=== PATIENT | male | born 2000 | race Caucasian/White ===

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

== ENCOUNTER 2022-04-06 17:09 | Emergency (ER) | payer BC, OTHER ==
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
[2022-04-06 22:21] VITALS: BP 132/82; O2SAT 100
== END 2022-04-06 19:53 | disposition home or self-care (01) ==
LOC: ER 17:09
DX: S09.90XA Unspecified injury of head, initial encounter (principal)
CPT/HCPCS: 70450; 72125

== ENCOUNTER 2024-05-14 19:38 | Emergency (ER) | payer BC, OTHER, SELFPAY ==
--- OUTSIDE RECORDS SUMMARY | 2024-05-14 19:41 | XMS REPORT | Continuity of Care Document ---
Author Name Unknown Address [address] [facility] [address] [place] [address] [facility] thconnect Address [address] [facility] [address] [place] [address] Care Team Providers Care Waste Specialist Name Role Phone Unavailable Unavailable Unavailable Encounters Start Date/Time End Date/Time Encounter Type Admission Type Attending Clinicians Care Facility Care Department Encounter ID Source 2023-03-31 14:14:57 2023-03-31 14:14:57 Outpatient [facility] [id number] Yury Quiles 2022-11-16 15:45:28 2022-11-16 15:45:28 Outpatient [facility] [id number] Yury Quiles 2022-09-28 08:17:55 2022-09-28 08:17:55 Outpatient [facility] [id number] Yury Quiles 2022-05-17 16:21:54 2022-05-17 16:21:54 Outpatient [facility] [id number] Yury Quiles Results Test Description Test Time Test Comments Results Result Co mments Source VITAMIN [id number] 06:49:09* Test Item Value Reference Range Interpretation Comme [facility] VITAMIN B-12 (test code = 2840) 480 PG/ML 200-950 [id number] 05:14:00* Test Item Value Reference Range Interpretation Comme [facility] TESTOSTERONE (test code = 2830) 540 NG/DL 300-1080 HEPATITIS PANEL, [id number] 04:08:50* Test Item Value Reference Range Interpretation Comme nts HEPATITIS A IgM (test code = 25564) NON-REACTIVE NON-REACTIVE HEPATITIS B CORE IgM (test code = 4644) NON-REACTIVE NON-REACTIVE HEPATITIS B SURF AG (test code = 2739) NON-REACTIVE NON-REACTIVE HEPATITIS C ANTIBODY (test code = 4675) NON-REACTIVE NON-REACTIVE INTERPRETATION HEPATITIS A: (test code = 2552) (NOTE) Hepatitis A sero logy shows no evidence of acute hepatitis A. INTERPRETATION HEPATITIS B: (test code = 80839) (NOTE) Hepatitis B sero logy shows no evidence of acute hepatitis B andno indication of exposure to hepatitis B virus in the previous nicolas eight months. INTERPRETATION HEPATITIS C: (test code = 08048) (NOTE) Hepatitis C sero logy shows no evidence of exposure to hepatitisC virus at this time. It can take up to 12 months after exposure tothe hepatitis C virus for antibodies to become detectable in the blood in certain patients. UNLESS OTHERWISE INDICATED, ALL TESTING PERFORMED AT [facility] [address] [place] [address] LEVEL VIAL SEALER: NAVEED PATRICK M.D. CLIA NUMBER [id number] [facility] [place]. [id number] HIV 1/2 4TH GEN, RFLX [id number] 04:08:50* Test Item Value Reference Range Interpretation Comme nts HIV 1/2 4TH GEN, RFLX CONF ( test code = 3514) NON-REACTIVE NON-REACTIVE [id number] 04:01:51* Test Item Value Reference Range Interpretation Comme nts RPR RESULT (test code = 3501) NON-REACTIVE NON-REACTIVE RPR TITER (test code = 3500) NOT INDIC. TITER NOT INDIC. COMPREHENSIVE METABOLIC [id number] 05:03:05* Test Item Value Reference Range Interpretation Comme nts GLUCOSE (test code = 2217) 97 MG/DL 70-99 BUN (test code = 8) 19 MG/DL 6-20 CREATININE (test code = 2214) 1.23 MG/DL 0.80-1.40 eGFR (2020 CKD-EPI) (test code = 98116) 86 ML/MIN/1.73 >60 CALC BUN/CREAT (test code = 2235) 15 RATIO 6-28 SODIUM (test code = 2231) 141 MEQ/L 133-146 POTASSIUM (test code = 8) 3.8 MEQ/L 3.5-5.4 CHLORIDE (test code = 2215) 106 MEQ/L 95-107 CARBON DIOXIDE (test code = 6) 23 MEQ/L 19-31 CALCIUM (test code = 2209) 9.6 MG/DL 8.5-10.5 PROTEIN, TOTAL (test code = 2228) 7.5 G/DL 6.1-8.3 ALBUMIN (test code = 1) 4.9 G/DL 3.5-5.2 CALC GLOBULIN (test code = 2240) 2.6 G/DL 1.9-3.7 CALC A/G RATIO (test code = 2233) 1.9 RATIO 1.0-2.6 BILIRUBIN, TOTAL (test code = 2206) 0.3 MG/DL See_Comment [Automated me ssage] The system which generated this result transmitted reference range: <=1.2. The reference range was not used to interpret this result as normal/abnormal. ALKALINE PHOSPHATASE (test code = 2203) 102 U/L 49-148 AST (test code = 8) 9 U/L 9-50 ALT (test code = 2218) 25 U/L 5-50 LIPID [id number] 05:03:05* Test Item Value Reference Range Interpretation Comme nts CHOLESTEROL (test code = 2210) 172 MG/DL <200 TRIGLYCERIDES (test code = 2) 144 MG/DL <150 HDL CHOLESTEROL (test code = 0) 46 MG/DL >39 CALC LDL CHOL (test code = 2236) 102 MG/DL <100 H NOTE: CALCULATED LDL IS BASED ON HEDY-THOMPSON METHOD WHICHINCLUDES ADJUSTABLE TRIGLYCERIDE:VLDL CHOLESTEROL RATIO.THIS FACTOR VARIES BY MEASURED TRIGLYCERIDE AND NON-HDLCHOLESTEROL CONCENTRATIONS WITH INCREASED CALCULATED LDL SEENIN HIGHER TRIGLYCERIDE OR LOWER NON-HDL SPECIMENS. FOR MOREINFORMATION, SEE CLIENT ANNOUNCEMENT AT [email or web address] [email or web address] RATIO LDL/HDL (test code = 2238) 2.22 RATIO <3.55 VITAMIN D, 25 [id number] 04:55:30* Test Item Value Reference Range Interpretation Comme nts VITAMIN D, 25 OH (test code = 4958) 33 NG/ML SEE BELOW EFFECTIVE 11/2022, PLEASE NOTE NEW METHODOLOGY IS ELECTROCHEMILUMINESCENCE BINDING ASSAY. NOTE: 25-HYDROXYVITAMIN D ASSAY INCLUDES 25-HYDROXYVITAMIN D2 AND D3. INTERPRETIVE RANGES PEDIATRIC (<17 YEARS) . . . . . . . . . . . NG/ML 20-100ADULT: INSUFFICIENT . . . . . . . . . . . . . . NG/ML <20 SUBOPTIMAL . . . . . . . . . . . . . . . NG/ML 20-29 OPTIMAL . . . . . . . . . . . . . . . . . NG/ML 30-100 TSH, THIRD [id number] 04:54:38* Test Item Value Reference Range Interpretation Comme nts TSH, THIRD GENERATION (test code = 2821) 1.290 UIU/ML 0.400-4.100 [facility] has impo rtant pathology staff changes effective 05/11/2022. New pathology staff will provide uninterrupted, excellent patient care and clinical consultation. See URL: [email or web address]. UNLESS OTHERWISE INDICATED, ALL TESTING PERFORMED AT [facility] [address] [place] [address] LEVEL VIAL SEALER: NAVEED PATRICK M.D. IA NUMBER [id number] [facility] [place]. [id number] HEMOGLOBIN [id number] 04:45:04* Test Item Value Reference Range Interpretation Comme nts HEMOGLOBIN A1c (test code = 35407) 5.1 % 4.2-5.6 CBC W/AUTO DIFF WITH [id number] 03:21:49* Test Item Value Reference Range Interpretation Comme nts WBC (test code = 1001) 9.7 K/UL 3.5-11.0 RBC (test code = 1002) 5.10 M/UL 4.50-6.10 HEMOGLOBIN (test code = 1003) 14.9 G/DL 13.5-17.0 HEMATOCRIT (test code = 1004) 43.2 % 40.0-51.0 MCV (test code = 1005) 84.7 fL 80.0-99.0 MCH (test code = 1006) 29.2 PG 25.0-33.0 MCHC (test code = 1007) 34.5 G/DL 31.0-36.0 RDW (test code = 1038) 12.9 % 11.5-15.0 NEUTROPHILS (test code = 1008) 72.4 % LYMPHOCYTES (test code = 1010) 17.9 % MONOCYTES (test code = 1011) 7.8 % EOSINOPHILS (test code = 1012) 1.1 % BASOPHILS (test code = 1013) 0.5 % IMMATURE GRANULOCYTES (test code = 1036) 0.3 % NUCLEATED RBCS (test code = 1065) 0.0 /100 WBC'S See_Comment [Automated [employer]] The system which generated this result transmitted reference range: 0.0. The reference range was not used to interpret this result as normal/abnormal. PLATELET COUNT (test code = 1015) 273 K/UL 130-400 ABSOLUTE NEUTROPHILS (test code = 1066) 7.04 K/UL 1.50-7.50 ABSOLUTE LYMPHOCYTES (test code = 1067) 1.74 K/UL 1.00-4.00 ABSOLUTE MONOCYTES (test code = 1068) 0.76 K/UL 0.20-1.00 ABSOLUTE EOSINOPHILS (test code = 1040) 0.11 K/UL 0.00-0.50 ABSOLUTE BASOPHILS (test code = 1069) 0.05 K/UL 0.00-0.20 ABS IMMATURE GRANULOCYTES (test code = 1020) 0.03 K/UL 0.00-0.10 ABS NUCLEATED RBCS (test code = 98201) 0.00 K/UL 0.00-0.11
--- NOTE | 2024-05-14 20:03 | RAD REPORT ---
EXAMINATION: Stone Protocol CLINICAL INDICATION: Abdominal pain. Right flank pain TECHNIQUE: CT abdomen and pelvis was performed, without IV contrast, as per department protocol. Oral contrast not given. Axial, sagittal and coronal reconstructions were obtained. One or more of the following dose reduction techniques were used: Automated exposure control, adjustment of the mA and k V according to the patient size, and iterative reconstruction. Unless otherwise specified, incidental findings do not require dedicated imaging follow-up. COMPARISON: No prior exam. FINDINGS: The lack of intravenous and oral contrast limits the sensitivity of this exam for evaluation of solid visceral organs, vascular structures, and bowel A renal calculus not seen. No ureteral calculus. A bladder calculus not noted. No hydronephrosis Liver, pancreas and adrenals grossly normal. Spleen 13 cm No evidence of diverticulitis. Normal appendix. Mild compression T11 vertebral body appears chronic. Tiny umbilical hernia. Possible disc herniation L4-5. Evaluation is somewhat limited. IMPRESSION: Negative for a genitourinary calculus Possible disc herniation L4-5. If clinically indicated nonemergent MRI lumbar spine obtained Borderline splenomegaly
[2024-05-14] MEDS ORDERED: MORPHINE 4 MG/ML SYR ONE (20:38)
[2024-05-14] MEDS ORDERED: ONDANSETRON 4 MG/2 ML VIAL ONE (20:38)
[2024-05-14 21:15] LABS: Albumin 3.8 g/dL (3.4-5.0); Albumin/Globulin Ratio 0.8 (1.1-1.8); Anion Gap 8.1 mEq/L (5.0-15.0); Bilirubin Total 0.5 mg/dL (0.2-1.0); Globulin 4.5 g/dL (2.3-3.5); Protein, Total 8.3 g/dL (6.4-8.2)
[2024-05-14 21:17] LABS: Potassium 4.1 mEq/L (3.5-5.1)
[2024-05-14 23:10] LABS: Absolute Basophils 0.1 K/uL (0-0.5); Absolute Eosinophils 0.2 K/uL (0-0.5); Absolute Lymphocytes (CBC) 3.6 K/uL (0.7-4.9); Absolute Monocytes 0.9 K/uL (0.1-1.3); Absolute Neutrophil 6.2 K/uL (1.8-8.0); Basophils % 0.8 % (0-1.3); Eosinophils % 1.8 % (0-4.4); Hematocrit 44.7 % (39.6-49.0); Hemoglobin 15.5 g/dL (13.6-17.9); Lymphocytes % 32.6 % (15.3-44.8); MCH 29.3 pg (27.0-35.0); MCHC 34.7 g/dL (32.0-36.0); MCV 84.4 fL (80-100); MPV 8.1 fL (7.6-11.3); Monocytes % 8.2 % (3.3-12.3); Neutrophils % 56.6 % (41.7-73.7); Nucleated Red Blood Cells % 0.1 % (0-0); Platelets 291 thou/uL (152-406); Red Cell Distribution Width 13.5 % (12.1-15.2)
[2024-05-14 23:19] LABS: Specific Gravity 1.023 (1.005-1.030); Urine Bilirubin NEGATIVE (Negative); Urine Blood Negative (Negative); Urine Clarity Clear (Clear); Urine Color Yellow (Yellow); Urine Glucose NEGATIVE (Negative); Urine Ketones NEGATIVE (Negative); Urine Microscopic Reflex YN NO UMIC; Urine Nitrite NEGATIVE (Negative); Urine Protein NEGATIVE (Negative); Urine Urobilinogen Normal (Normal)
--- NOTE | 2024-05-14 23:27 | EDPHYS ---
Physician Documentation [facility] Name: Octavoi Cortez Age: 23 yrs Sex: Male : 2000 Arrival Date: 05/14/2024 Time: 19:38 Bed IW1 Private MD: ED Physician Jama Velasco HPI: 05/15 00:02 This 23 yrs old Male presents to ER via Wheelchair with complaints of HEMATURIA, SEVERE kb RT SIDE PAIN, Low Back Pain. 00:02 Pt is a 23 year old male who presents for pain to lower back that started at 1045 this morning. States the pain is worse on the right. Pain aggravated by movement, improved with rest. Denies urinary symptoms, fever, n/v/d. . Historical: - Allergies: 05/14 20:04 No Known Allergies; ap3 - PMHx: 20:04 Asthma; ap3 - Immunization history:: Client reports having NOT received the Covid vaccine. Flu vaccine is not up to date. - Infectious Disease History:: Denies. - Social history:: Smoking status: Patient reports use of chewing tobacco. Reported history of juuling and/or vaping. ROS: 05/15 00:01 Constitutional: As per HPI kb Exam: 00:01 Constitutional: This is a well developed, well nourished patient who is awake, alert, kb and in no acute distress. Head/Face: Normocephalic, atraumatic. ENT: Moist Mucous membranes Cardiovascular: Regular rate Respiratory: Respirations even and unlabored. No increased work of breathing. Talking in full sentences Abdomen/GI: Soft, non-tender. No distention Skin: Warm, dry with normal turgor. Normal color. MS/ Extremity: Pulses equal, no cyanosis. Neurovascular intact. Full, normal range of motion. Neuro: Awake and alert, GCS 15, oriented to person, place, time, and situation. 00:01 Back: pain, that is moderate, of the low back area and mid back area, ROM is painful, normal spinal alignment noted, Vital Signs: 05/14 20:02 BP 162 / 94; Pulse 82; Resp 18; Temp 97.8; Pulse Ox 100% ; Weight 117.93 kg; Height 6 ap3 ft. 1 in. ; Pain 6/10; 23:28 BP 153 / 87; Pulse 80; Resp 18; Temp 97.8; Pulse Ox 100% ; Pain 5/10; bm8 20:02 Body Mass Index 34.30 (117.93 kg, 185.42 cm) ap3 20:02 Pain Scale: Adult ap3 23:28 Pain Scale: Adult bm8 [place] Coma Score: 23:28 Eye Response: spontaneous(4). Motor Response: obeys commands(6). Verbal Response: bm8 oriented(5). Total: 15. MDM: 19:45 Medical Screening Exam initiated 23:20 Data reviewed: vital signs, nurses notes. 05/15 00:02 Differential diagnosis: kidney stone, herniated disc, strain. Historians other than the kb Patient: Spouse/Significant Other: significant other. Counseling: I had a detailed discussion with the patient and/or guardian regarding the historical points, exam findings, and any diagnostic results supporting the discharge/admit diagnosis, lab results, radiology results, the need for outpatient follow up, a family practitioner, to return to the emergency department if symptoms worsen or persist or if there are any questions or concerns that arise at home. 05/14 19:44 Order name: CBC with Diff; Complete Time: 23:13 rn 05/14 19:44 Order name: CMP; Complete Time: 21:18 rn 05/14 19:44 Order name: Urinalysis w/ reflexes; Complete Time: 23:19 rn 05/14 19:44 Order name: CT Stone Protocol; Complete Time: 20:04 rn 05/14 19:44 Order name: IV Saline Lock; Complete Time: 21:00 rn 05/14 19:44 Order name: Labs collected and sent; Complete Time: 21:00 rn 05/14 21:28 Order name: Labs - recollect needed: recollect purple top ; Complete Time: 23:28 kmf Administered Medications: 05/14 20:59 Drug: Ondansetron IVP 4 mg IVP once; over 2 minutes Route: IVP; Site: left antecubital; bm8 22:45 Follow up: Response: No adverse reaction bm8 21:00 Drug: morphine IVP or IV 4 mg IVP once over 4 mins Route: IVP; Infused Over: 4 mins; bm8 Site: left antecubital; 22:46 Follow up: Response: No adverse reaction bm8 23:31 Drug: Ketorolac IVP 15 mg IVP once Route: IVP; Site: left antecubital; bm8 23:45 Follow up: Response: No adverse reaction bm8 23:31 Drug: Diazepam PO 5 mg PO once Route: PO; bm8 23:44 Follow up: Response: No adverse reaction bm8 23:32 Drug: Decadron - Dexamethasone IVP 10 mg IVP once Route: IVP; Site: left antecubital; bm8 23:45 Follow up: Response: No adverse reaction bm8 Disposition Summary: 05/14/24 23:27 Discharge Ordered Notes: Location: Home kb Condition: Stable kb Diagnosis - Low back pain kb Followup: kb - With: Emergency Department - When: As needed - Reason: Worsening of condition Followup: kb - With: Private Physician - When: 2 - 3 days - Reason: Recheck today's complaints, Continuance of care, Re-evaluation by your physician Discharge Instructions: - Discharge Summary Sheet kb - Acute Back Pain, Adult kb - Herniated Disk, [id number] kb Forms: - Work release form kb - Medication Reconciliation Form kb - Antibiotic Education kb - Prescription Opioid Use kb - Patient Portal Instructions kb - Leadership Thank You Letter kb Prescriptions: - Prednisone 20 mg Oral Tablet - take 1 tablet ORAL route once daily for 5 days; 5 tablet; Refills: 0, Product kb Selection Permitted - Diclofenac Sodium 75 mg Oral tablet, delayed release (enteric coated) - take 1 tablet ORAL route 2 times per day As needed; 30 tablet; Refills: 0, kb Product Selection Permitted - orphenadrine citrate 100 mg Oral Tablet Sustained Release - take 1 tablet ORAL route 2 times per day As needed; 20 tablet; Refills: 0, kb Product Selection Permitted Signatures: Dispatcher [employer] EDAleena Mistry, SCARFER OPERATOR-C SCARFER OPERATOR-Ckb Jama Velasco MD MD rn Prokisch, Amanda, RN RN [email or web address] Frances Ruiz [facility] Oswaldo Orr RN RN bm8 Corrections: (The following items were deleted from the chart) 19:45 19:45 CBC+H.LAB.BRZ ordered. EDMS EDMS 19:45 19:45 COMPREHENSIVE METABOLIC PANEL+C.LAB.BRZ ordered. EDMS EDMS 19:45 19:45 Urinalysis+U.LAB.BRZ ordered. EDMS EDMS 19:45 19:45 Stone Protocol+CT.RAD.BRZ ordered. EDMS EDMS
--- NOTE | 2024-05-14 23:27 | ER ---
Nurse's Notes [facility] Name: Octavio Cortez Age: 23 yrs Sex: Male : 2000 Arrival Date: 05/14/2024 Time: 19:38 Bed IW1 Private MD: Diagnosis: Low back pain Presentation: 05/14 20:02 Chief complaint: Patient states: he is having right sided back pain and side pain that ap3 started this morning at 1045. patient also reports that he has been having blood in his urine intermittently for over a year. Coronavirus screen: At this time, the client does not indicate any symptoms associated with coronavirus-19. Ebola Screen: No symptoms or risks identified at this time. Initial Sepsis Screen: Does the patient meet any 2 criteria? No. Patient's initial sepsis screen is negative. Does the patient have a suspected source of infection? No. Patient's initial sepsis screen is negative. Risk Assessment: Do you want to hurt yourself or someone else? Patient reports no desire to harm self or others. Onset of symptoms is unknown. 20:02 Method Of Arrival: Wheelchair ap3 20:02 Acuity: SHANNAN 3 ap3 Triage Assessment: 20:05 General: Appears uncomfortable, Behavior is calm, cooperative, appropriate for age. ap3 Pain: Complains of pain in back, right side Pain currently is 6 out of 10 on a pain scale. at worst was 10 out of 10 on a pain scale. Neuro: Level of Consciousness is awake, alert, obeys commands, Oriented to person, place, time, situation, Appropriate for age Speech is normal. Cardiovascular: Patient's skin is warm and dry. Respiratory: Airway is patent Respiratory effort is even, unlabored, Respiratory pattern is regular, symmetrical. : Reports blood in urine since july of 2022. Historical: - Allergies: 20:04 No Known Allergies; ap3 - PMHx: 20:04 Asthma; ap3 - Immunization history:: Client reports having NOT received the Covid vaccine. Flu vaccine is not up to date. - Infectious Disease History:: Denies. - Social history:: Smoking status: Patient reports use of chewing tobacco. Reported history of juuling and/or vaping. Screenin:06 Abuse screen: Denies threats or abuse. Nutritional screening: No deficits noted. ap3 Tuberculosis screening: No symptoms or risk factors identified. 23:28 [facility] ED Fall Risk Assessment (Adult) History of falling in the last 3 months, bm8 including since admission No falls in past 3 months (0 pts) Confusion or Disorientation No (0 pts) Intoxicated or Sedated No (0 pts) Impaired Gait Yes (1 pt) Mobility Assist Device Used No (0 pt) Altered Elimination No (0 pt) Score/Fall Risk Level 0 - 2 = Low Risk Oriented to surroundings, Maintained a safe environment, Educated pt \T\ family on fall prevention, incl call for assistance when getting out of bed, Assessed \T\ reinforced patient's understanding of fall precautions, Hourly rounding (assess needs \T\ fall precautionary measures) done, Used ambulatory aids as needed (educated on \T\ assisted with), Used gait belt as appropriate. Assessment: 23:31 Reassessment: Patient appears in no apparent distress at this time. Patient and/or bm8 family updated on plan of care and expected duration. Pain level reassessed. Patient is alert, oriented x 3, equal unlabored respirations, skin warm/dry/pink. Patient states feeling better. Patient states symptoms have improved. Musculoskeletal: Capillary refill < 3 seconds, in bilateral fingers. Reports pain in back. Vital Signs: 20:02 BP 162 / 94; Pulse 82; Resp 18; Temp 97.8; Pulse Ox 100% ; Weight 117.93 kg; Height 6 ap3 ft. 1 in. ; Pain 6/10; 23:28 BP 153 / 87; Pulse 80; Resp 18; Temp 97.8; Pulse Ox 100% ; Pain 5/10; bm8 20:02 Body Mass Index 34.30 (117.93 kg, 185.42 cm) ap3 20:02 Pain Scale: Adult ap3 23:28 Pain Scale: Adult bm8 [place] Coma Score: 23:28 Eye Response: spontaneous(4). Motor Response: obeys commands(6). Verbal Response: bm8 oriented(5). Total: 15. ED Course: 19:42 Patient arrived in ED. jj6 19:45 Aleena Murcia [facility]NP-C [facility] kb 19:45 Jama Velasco MD is Attending Physician. kb 19:54 CT Stone Protocol In Process Unspecified. EDMS 20:04 Triage completed. ap3 20:06 Arm band placed on left wrist. ap3 20:48 Missed attempt(s): 20 gauge in left antecubital area. Bleeding controlled, band aid rv1 applied, catheter tip intact. 20:48 Inserted saline lock: 20 gauge in left antecubital area, using aseptic technique. Blood rv1 collected. Flushed with 10 mL NS. 23:28 Patient has correct armband on for positive identification. Provided Education on: post bm8 er care. 23:28 No provider procedures requiring assistance completed. IV discontinued, intact, bm8 bleeding controlled, No redness/swelling at site. Pressure dressing applied. 23:44 Oswaldo Orr, RN is Primary Nurse. bm8 Administered Medications: 20:59 Drug: Ondansetron IVP 4 mg IVP once; over 2 minutes Route: IVP; Site: left antecubital; bm8 22:45 Follow up: Response: No adverse reaction bm8 21:00 Drug: morphine IVP or IV 4 mg IVP once over 4 mins Route: IVP; Infused Over: 4 mins; bm8 Site: left antecubital; 22:46 Follow up: Response: No adverse reaction bm8 23:31 Drug: Ketorolac IVP 15 mg IVP once Route: IVP; Site: left antecubital; bm8 23:45 Follow up: Response: No adverse reaction bm8 23:31 Drug: Diazepam PO 5 mg PO once Route: PO; bm8 23:44 Follow up: Response: No adverse reaction bm8 23:32 Drug: Decadron - Dexamethasone IVP 10 mg IVP once Route: IVP; Site: left antecubital; bm8 23:45 Follow up: Response: No adverse reaction bm8 Medication: 23:28 VIS not applicable for this client. bm8 Outcome: 23:27 Discharge ordered by MD. marina 23:28 Discharged to home ambulatory, bm8 23:28 Condition: stable 23:28 Discharge instructions given to patient, family, Instructed on discharge instructions, follow up and referral plans. no drinking with medication, no driving heavy equipment, medication usage, safety practices, Demonstrated understanding of instructions, follow-up care, medications, Prescriptions given X 3, 23:45 Patient left the ED. bm8 Signatures: Dispatcher [employer] EDWY Aleena Murcia, JUDAH-C JUDAH-Divya Juarez RN RN ap3 Tessa Burrellj6 Mariam Mccallum rv1 Oswaldo Orr, RN RN bm8 Corrections: (The following items were deleted from the chart) 20:49 20:48 Missed attempt(s): 20 gauge in right antecubital area. Bleeding controlled, band rv1 aid applied, catheter tip intact. rv1 23:30 23:28 Discharge instructions given to patient, family, Instructed on discharge bm8 instructions, follow up and referral plans. no drinking with medication, no driving heavy equipment, medication usage, safety practices, Demonstrated understanding of instructions, follow-up care, medications, Prescriptions given X 2, bm8
[2024-05-14] MEDS ORDERED: KETOROLAC 30 MG/ML INJ ONE (23:34)
[2024-05-14] MEDS ORDERED: dexAMETHasone 10 MG/ML VIAL ONE (23:34)
[2024-05-14] MEDS ORDERED: DIAZEPAM 5 MG TABLET ONE (23:34)
[2024-05-15 00:18] VITALS: TEMP 97.8; O2SAT 100
[2024-05-15 00:24] VITALS: BP 153/87
== END 2024-05-14 23:45 | disposition home or self-care (01) ==
LOC: ER 19:38
DX: M54.50 Low back pain, unspecified (principal)
CPT/HCPCS: 36415; 74176; 76377; 80053; 81003; 85025; 96374; 96375; 99284; J1100; J2405